=== PATIENT | male | born 1980 | race Caucasian/White ===

== ENCOUNTER 2017-09-16 04:29 | Inpatient (IN) | payer BC, OTHER ==
[2017-09-16] MEDS ORDERED: Ondansetron 4 MG/2 ML SDV IVPUSH ONE (04:43)
[2017-09-16] MEDS ORDERED: HYDROmorphone 2 MG/ML Syringe IVPUSH ONE (04:43)
[2017-09-16] MEDS ORDERED: Sodium Chloride 0.9% 1,000 ML IV ONE ×3 (04:43→06:27)
[2017-09-16] MEDS ORDERED: Sodium Chloride 0.9% 10 ML Syringe FLUSH PRN (04:43)
[2017-09-16] MEDS ORDERED: Sodium Chloride 0.9% 2.5 ML Syringe FLUSH PRN (04:43)
[2017-09-16] MEDS ORDERED: HYDROmorphone 1 MG/ML Syringe IVPUSH ONE ×2 (04:46→06:09)
--- NOTE | 2017-09-16 04:48 | EDM.PDOC ---
ED HPI GENERAL MEDICAL PROBLEM - General Chief Complaint: Abdominal Pain Stated Complaint: STOMACH PAINS Time Seen by Provider: 09/16/17 04:36 - History of Present Illness INITIAL COMMENTS - FREE TEXT/NARRATIVE: HISTORY AND PHYSICAL: History of present illness: The patient is a 36 y/o male who presents with complaints of 2-1/2 days of constant abdominal pain which waxes and wanes in intensity. The patient has a complicated abdominal surgical history as he has had diverticulitis in the past and has been treated for that and then developed a diverticular abscess requiring surgery. He had the surgery done in [place] and had a colostomy which was subsequently reversed and then because of complications had to have an ileostomy which was then reversed and his most recent surgery was June of this year, 2 months ago. The patient says that for the last 2 days he has had a constant diffuse abdominal pain more in the mid abdomen that he rates as a 6/10 and then he has waxing and waning waves of contraction-like pain but takes it to a 10 over 10. The patient thought he might be somewhat constipated so he took some [id number] preps and has had some small episodes of diarrhea this evening. He has not had an appetite since Friday but has forced himself to eat but he feels nauseated with that and he has only vomited on Friday night. Currently he feels like he is going to vomit again but he has not done so. The patient has not taken anything specifically for pain tonight or nausea. He has not had fevers chills chest pain or shortness of breath. He was told by his surgeon that he has a large amount of scar tissue and that he is at risk for bowel blockages. The patient says that they took his appendix out during one of these surgeries but he still has his gallbladder. He has been making normal urine output. The patient states her nursing history history of hypertension and anxiety chronic back pain and depression and PTSD Review of systems: As per history of present illness and below otherwise all systems reviewed and negative. Past medical history: As per history of present illness and as reviewed below otherwise noncontributory. Surgical history: As per history of present illness and as reviewed below otherwise noncontributory. Social history: No reported history of drug or alcohol abuse. Family history: As per history of present illness and as reviewed below otherwise noncontributory. Physical exam: General: Well-developed well-nourished man who is nontoxic and looks intermittently uncomfortable but is cooperative and vital signs are noted by me HEENT: Atraumatic, normocephalic, negative for conjunctival pallor or scleral icterus, mucous membranes tacky, throat clear, neck supple, nontender, trachea midline. Lungs: Clear to auscultation, breath sounds equal bilaterally, chest nontender. No work of. Breathing, wheezing or stridor Heart: S1S2, regular, negative for clicks, rubs, or JVD. Abdomen: Soft, nondistended, diffusely mildly tender on palpation with very hypoactive bowel sounds. There is no tympany on percussion. There are multiple healed scars appreciated and a small umbilical hernia which is soft. There is diffuse tenderness with more tenderness around the right mid/lower quadrant old incisional area with some voluntary guarding but no involuntary guarding or rebound. The patient has difficulty relaxing for the exam Negative for masses or hepatosplenomegaly. Negative for costovertebral tenderness. Pelvis: Stable nontender. Genitourinary: Deferred. Rectal: Deferred. Extremities: Atraumatic, negative for cords or calf pain. Neurovascular unremarkable. Neuro: Awake, alert, oriented. Cranial nerves II through XII unremarkable. Cerebellum unremarkable. Motor and sensory unremarkable throughout. Exam nonfocal. Diagnostics: CBC CMP amylase lipase lactic acid CT scan of the abdomen and pelvis UA Therapeutics: IV fluids Zofran Dilaudid 0702: Testing results were discussed with Dr. Russo as well as with the patient. The patient will be admitted for IV fluids and bowel rest and further care and evaluation. It is unclear if the patient has non-CT pancreatitis or just inflammatory bowel disease. The patient says he has never been told that he has an IBS syndrome. He is feeling much improved is agreeable to the care plan. Impression: Abdominal pain with complicated abdominal surgical history, rule out pancreatitis versus IBS Definitive disposition and diagnosis as appropriate pending reevaluation and review of above. abdomen Pain Score (Numeric/FACES): 6 - Related Data Allergies Allergy/AdvReac Type Severity Reaction Status Date / Time No Known Allergies Allergy Verified 09/16/17 04:30 Home Meds: Home Meds Citalopram Hydrobromide [Celexa] 20 mg PO DAILY 07/05/16 [History] Diclofenac Sodium [IJD: Diclofenac Sodium] 75 mg PO BID 07/05/16 [History] Gabapentin [Neurontin] 600 mg PO TID 07/05/16 [History] Lisinopril [Prinivil] 20 mg PO DAILY 07/05/16 [History] traZODone 0 mg PO BEDTIME 07/05/16 [History] Past Medical History Cardiovascular History: Reports: Hypertension Gastrointestinal History: Reports: Other (See Below) Other Gastrointestinal History: Diverticulitis Musculoskeletal History: Reports: Back Pain, Chronic Psychiatric History: Reports: Anxiety, Depression, PTSD - Infectious Disease History Infectious Disease History: Reports: Chicken Pox - Past Surgical History GI Surgical History: Reports: Other (See Below) Musculoskeletal Surgical History: Reports: Other (See Below) Social & Family History - Family History Family Medical History: Noncontributory - Caffeine Use Caffeine Use: Reports: Coffee, Soda ED ROS GENERAL - Review of Systems Review Of Systems: ROS reveals no pertinent complaints other than HPI. ED EXAM, GENERAL - Physical Exam Exam: See Below (See dictation) Course - Vital Signs Last Recorded V/S: Last Vital Signs Temp 36.4 C 09/16/17 06:24 Pulse 64 09/16/17 06:24 Resp 18 09/16/17 06:24 BP 138/78 09/16/17 06:24 Pulse Ox 98 09/16/17 06:24 - Orders/Labs/Meds Orders: Active Orders 24 hr Category Date Time Status Patient Status [ADT] Stat ADT 09/16/17 07:10 Ordered Abdomen Pelvis w Cont [CT] Stat Exams 09/16/17 04:43 Taken UA W/MICROSCOPIC [URIN] Stat Lab 09/16/17 04:42 Ordered Sodium Chloride 0.9% [Normal Saline] 1,000 ml Med 09/16/17 06:27 Active IV .Bolus Sodium Chloride 0.9% [Normal Saline] 1,000 ml Med 09/16/17 06:27 Active IV STAT Sodium Chloride 0.9% [Saline Flush] Med 09/16/17 04:43 Active 10 ml FLUSH ASDIRECTED PRN Sodium Chloride 0.9% [Saline Flush] Med 09/16/17 04:43 Active 2.5 ml FLUSH ASDIRECTED PRN Saline Lock Insert [OM.PC] Stat Oth 09/16/17 04:42 Ordered Medication Orders Sodium Chloride (Normal Saline) 1,000 mls @ 999 mls/hr IV STAT ONE Stop: 09/16/17 07:27 Last Admin: 09/16/17 06:29 Dose: 999 mls/hr Sodium Chloride (Normal Saline) 1,000 mls @ 999 mls/hr IV .Bolus ONE Stop: 09/16/17 07:27 Sodium Chloride (Saline Flush) 10 ml FLUSH ASDIRECTED PRN PRN Reason: Keep Vein Open Sodium Chloride (Saline Flush) 2.5 ml FLUSH ASDIRECTED PRN PRN Reason: Keep Vein Open Labs: Laboratory Tests 09/16/17 09/16/17 09/16/17 Range/Units 04:42 04:42 04:42 WBC 9.99 (4.0-11.0) K/uL RBC 5.28 (4.50-5.90) M/uL Hgb 16.7 (13.0-17.0) g/dL Hct 46.2 (38.0-50.0) % MCV 87.5 (80.0-98.0) fL MCH 31.6 (27.0-32.0) pg MCHC 36.1 (31.0-37.0) g/dL RDW Std Deviation 38.5 (28.0-62.0) fl RDW Coeff of [place] 12 (11.0-15.0) % Plt Count 217 (150-400) K/uL MPV 10.10 (7.40-12.00) fL Neut % (Auto) 74.0 (48.0-80.0) % Lymph % (Auto) 18.1 (16.0-40.0) % [place] % (Auto) 7.4 (0.0-15.0) % Eos % (Auto) 0.3 (0.0-7.0) % Baso % (Auto) 0.2 (0.0-1.5) % Neut # (Auto) 7.4 H (1.4-5.7) K/uL Lymph # (Auto) 1.8 (0.6-2.4) K/uL [place] # (Auto) 0.7 (0.0-0.8) K/uL Eos # (Auto) 0.0 (0.0-0.7) K/uL Baso # (Auto) 0.0 (0.0-0.1) K/uL Nucleated RBC % 0.0 /100WBC Nucleated RBCs # 0 K/uL Lactate 0.7 (0.20-2.00) mmol/L Sodium 140 (136-148) mmol/L Potassium 3.6 (3.5-5.1) mmol/L Chloride 101 (98-107) mmol/L Carbon Dioxide 28.5 (21.0-32.0) mmol/L BUN 15 (7.0-18.0) mg/dL Creatinine 1.2 (0.8-1.3) mg/dL Est Cr Clr Drug Dosing 82.33 mL/min Estimated GFR (MDRD) > 60.0 ml/min Glucose 133 H (74-106) mg/dL Calcium 8.7 (8.5-10.1) mg/dL Total Bilirubin 0.5 (0.2-1.0) mg/dL AST 24 (15-37) IU/L ALT 46 (14-63) IU/L Alkaline Phosphatase 68 (46-116) U/L Total Protein 7.4 (6.4-8.2) g/dL Albumin 3.9 (3.4-5.0) g/dL Globulin 3.5 (2.0-3.5) g/dL Albumin/Globulin Ratio 1.1 L (1.3-2.8) Amylase 169 H (25-115) U/L Lipase 1479 H (73-393) U/L Urine Color Urine Appearance Urine pH (5.0-8.0) Ur Specific [place] (1.001-1.035) Urine Protein (NEGATIVE) mg/dL Urine Glucose (UA) (NEGATIVE) mg/dL Urine Ketones (NEGATIVE) mg/dL Urine Occult Blood (NEGATIVE) Urine Nitrite (NEGATIVE) Urine Bilirubin (NEGATIVE) Urine Urobilinogen (<2.0) EU/dL Ur Leukocyte Esterase (NEGATIVE) Urine RBC (0-2/HPF) Urine WBC (0-5/HPF) Ur Epithelial Cells (NONE-FEW) Urine Bacteria (NEGATIVE) 09/16/17 Range/Units 04:42 WBC (4.0-11.0) K/uL RBC (4.50-5.90) M/uL Hgb (13.0-17.0) g/dL Hct (38.0-50.0) % MCV (80.0-98.0) fL MCH (27.0-32.0) pg MCHC (31.0-37.0) g/dL RDW Std Deviation (28.0-62.0) fl RDW Coeff of [place] (11.0-15.0) % Plt Count (150-400) K/uL MPV (7.40-12.00) fL Neut % (Auto) (48.0-80.0) % Lymph % (Auto) (16.0-40.0) % [place] % (Auto) (0.0-15.0) % Eos % (Auto) (0.0-7.0) % Baso % (Auto) (0.0-1.5) % Neut # (Auto) (1.4-5.7) K/uL Lymph # (Auto) (0.6-2.4) K/uL [place] # (Auto) (0.0-0.8) K/uL Eos # (Auto) (0.0-0.7) K/uL Baso # (Auto) (0.0-0.1) K/uL Nucleated RBC % /100WBC Nucleated RBCs # K/uL Lactate (0.20-2.00) mmol/L Sodium (136-148) mmol/L Potassium (3.5-5.1) mmol/L Chloride (98-107) mmol/L Carbon Dioxide (21.0-32.0) mmol/L BUN (7.0-18.0) mg/dL Creatinine (0.8-1.3) mg/dL Est Cr Clr Drug Dosing mL/min Estimated GFR (MDRD) ml/min Glucose (74-106) mg/dL Calcium (8.5-10.1) mg/dL Total Bilirubin (0.2-1.0) mg/dL AST (15-37) IU/L ALT (14-63) IU/L Alkaline Phosphatase (46-116) U/L Total Protein (6.4-8.2) g/dL Albumin (3.4-5.0) g/dL Globulin (2.0-3.5) g/dL Albumin/Globulin Ratio (1.3-2.8) Amylase (25-115) U/L Lipase (73-393) U/L Urine Color YELLOW Urine Appearance CLEAR Urine pH 6.0 (5.0-8.0) Ur Specific [place] 1.025 (1.001-1.035) Urine Protein NEGATIVE (NEGATIVE) mg/dL Urine Glucose (UA) NEGATIVE (NEGATIVE) mg/dL Urine Ketones NEGATIVE (NEGATIVE) mg/dL Urine Occult Blood NEGATIVE (NEGATIVE) Urine Nitrite NEGATIVE (NEGATIVE) Urine Bilirubin NEGATIVE (NEGATIVE) Urine Urobilinogen 0.2 (<2.0) EU/dL Ur Leukocyte Esterase NEGATIVE (NEGATIVE) Urine RBC NONE SEEN (0-2/HPF) Urine WBC 0-1 (0-5/HPF) Ur Epithelial Cells NOT SEEN (NONE-FEW) Urine Bacteria RARE (NEGATIVE) Meds: Medications Generic Name Dose Route Start Last Admin Trade Name Freq PRN Reason Stop Dose Admin Sodium Chloride 1,000 mls @ 999 mls/hr 09/16/17 06:27 09/16/17 06:29 Normal Saline IV 09/16/17 07:27 999 mls/hr STAT ONE Administration Sodium Chloride 1,000 mls @ 999 mls/hr 09/16/17 06:27 Normal Saline IV 09/16/17 07:27 .Bolus ONE Sodium Chloride 10 ml 09/16/17 04:43 Saline Flush FLUSH ASDIRECTED PRN Keep Vein Open Sodium Chloride 2.5 ml 09/16/17 04:43 Saline Flush FLUSH ASDIRECTED PRN Keep Vein Open Discontinued Medications Generic Name Dose Route Start Last Admin Trade Name Freq PRN Reason Stop Dose Admin Hydromorphone HCl 1 mg 09/16/17 04:43 09/16/17 04:57 Dilaudid IVPUSH 09/16/17 04:44 Not Given ONETIME ONE Hydromorphone HCl 1 mg 09/16/17 04:46 09/16/17 04:55 Dilaudid IVPUSH 09/16/17 04:47 1 mg ONETIME ONE Administration Hydromorphone HCl 1 mg 09/16/17 06:09 09/16/17 06:22 Dilaudid IVPUSH 09/16/17 06:10 1 mg ONETIME ONE Administration Sodium Chloride 1,000 mls @ 999 mls/hr 09/16/17 04:43 09/16/17 04:50 Normal Saline IV 09/16/17 05:43 999 mls/hr STAT ONE Administration Iopamidol 100 ml 09/16/17 06:05 09/16/17 06:06 [id number] (76%) IVPUSH 09/16/17 06:06 100 ml ONETIME STA Administration Ondansetron HCl 4 mg 09/16/17 04:43 09/16/17 04:55 Zofran IVPUSH 09/16/17 04:44 4 mg ONETIME ONE Administration Departure - Departure Time of Disposition: 07:12 Disposition: Admitted As Inpatient 66 Condition: Good Clinical Impression: Inflammatory bowel syndrome Abdominal pain Qualifiers: Abdominal location: right lower quadrant Qualified Code(s): R10.31 - Right lower quadrant pain Pancreatitis Qualifiers: Chronicity: acute Pancreatitis type: unspecified pancreatitis type Acute pancreatitis complication: unspecified Qualified Code(s): K85.90 - Acute pancreatitis without necrosis or infection, unspecified - Discharge Information Referrals: PCP,None [Primary Care Provider] - Forms: ED Department Discharge - My Orders Last 24 Hours: My Active Orders 09/16/17 04:42 UA W/MICROSCOPIC [URIN] Stat Saline Lock Insert [OM.PC] Stat 09/16/17 04:43 Abdomen Pelvis w Cont [CT] Stat Sodium Chloride 0.9% [Saline Flush] 10 ml FLUSH ASDIRECTED PRN Sodium Chloride 0.9% [Saline Flush] 2.5 ml FLUSH ASDIRECTED PRN 09/16/17 06:27 Sodium Chloride 0.9% [Normal Saline] 1,000 ml IV .Bolus Sodium Chloride 0.9% [Normal Saline] 1,000 ml IV STAT 09/16/17 07:10 Patient Status [ADT] Stat - Assessment/Plan Last 24 Hours: My Active Orders 09/16/17 04:42 UA W/MICROSCOPIC [URIN] Stat Saline Lock Insert [OM.PC] Stat 09/16/17 04:43 Abdomen Pelvis w Cont [CT] Stat Sodium Chloride 0.9% [Saline Flush] 10 ml FLUSH ASDIRECTED PRN Sodium Chloride 0.9% [Saline Flush] 2.5 ml FLUSH ASDIRECTED PRN 09/16/17 06:27 Sodium Chloride 0.9% [Normal Saline] 1,000 ml IV .Bolus Sodium Chloride 0.9% [Normal Saline] 1,000 ml IV STAT 09/16/17 07:10 Patient Status [ADT] Stat
[2017-09-16 05:17] LABS: CHLORIDE,CL 101 mmol/L (98-107); SODIUM,NA 140 mmol/L (136-148)
[2017-09-16] MEDS ORDERED: Iopamidol 755 Mg/ML 100 ML Bottle IVPUSH STA (06:05)
[2017-09-16] MEDS ORDERED: Citalopram 20 MG Tab PO SCH ×2 (09:00→21:00)
[2017-09-16] MEDS ORDERED: Lisinopril 10 MG Tab PO SCH ×2 (09:00→21:00)
[2017-09-16] MEDS: Morphine 10 MG/ML Syringe IVPUSH PRN ×6 (09:03→23:16)
--- NOTE | 2017-09-16 09:54 | PCM.HP ---
<Ventura Corbett - Last Filed: 09/16/17 09:48> H&P History of Present Illness - General Date of Service: 09/16/17 Admit Problem/Dx: Admission Diagnosis/Problem Admission Diagnosis/Problem Abdominal pain Source of Information: Patient History Limitations: Reports: No Limitations - History of Present Illness Initial Comments - Free Text/Narative: 36M with a history of recurrent diverticulitis, diverticular abscess s/p colectomy resulting in complications requiring colostomy, ileostomy presents to the ER with a CC of abdominal pain. The patient had ileostomy reversal/removal this past June. Patient tells me that since this past friday, he went out for dinner with his friends and since then began to experience generalized abdominal pain that was mainly concentrated in the lower quadrants bilaterally. He initially thought this was just constipation so he drank mag citrate, that helped him have a bowel movement but didn't help with the pain. Since then, the pain is about a 6/10, with intermittent waves of 10/10 pain. He has been admitted multiple times in the past at [place] [place] for pain control. The patient tells me that he's been told by patients that the pain is likely secondary to scar tissue formation around his bowel. He denies any alcohol use. He still has his galbladder. He also had his appendix removed in the past. CBC - unremarkable Lactate - normal CMP - unremarkable Lipase - 1479 Amylase - [address] Abdomen/Pelvis - segmental inflammation of the distal small bowel in the RLQ. Radiographic features suggestive of possible Crohn's disease. abdomen Pain Score (Numeric/FACES): 6 - Related Data Allergies/Adverse Reactions: Allergies Allergy/AdvReac Type Severity Reaction Status Date / Time No Known Allergies Allergy Verified 09/16/17 04:30 Home Medications: Home Meds Citalopram Hydrobromide [Celexa] 20 mg PO DAILY 07/05/16 [History] Diclofenac Sodium [IJD: Diclofenac Sodium] 75 mg PO BID 07/05/16 [History] Gabapentin [Neurontin] 600 mg PO TID 07/05/16 [History] Lisinopril [Prinivil] 20 mg PO DAILY 07/05/16 [History] traZODone 0 mg PO BEDTIME 07/05/16 [History] Past Medical History Cardiovascular History: Reports: Hypertension Gastrointestinal History: Reports: Other (See Below) Other Gastrointestinal History: Diverticulitis Musculoskeletal History: Reports: Back Pain, Chronic Psychiatric History: Reports: Anxiety, Depression, PTSD - Infectious Disease History Infectious Disease History: Reports: Chicken Pox - Past Surgical History GI Surgical History: Reports: Other (See Below) Musculoskeletal Surgical History: Reports: Other (See Below) Social & Family History - Family History Family Medical History: Noncontributory - Tobacco Use Smoking Status *Q: Former Smoker Years of Tobacco use: 10 Used Tobacco, but Quit: Yes Month/Year Tobacco Last Used: June 2017 - Caffeine Use Caffeine Use: Reports: Energy Drinks - Recreational Drug Use Recreational Drug Use: No H&P Review of Systems - Review of Systems: Review Of Systems: See Below General: Reports: Decreased Appetite HEENT: Reports: No Symptoms Pulmonary: Reports: No Symptoms Cardiovascular: Reports: No Symptoms Gastrointestinal: Reports: Abdominal Pain, Constipation, Decreased Appetite, Vomiting (one episode of nonbloody emesis yesterday). Denies: Black Stool, Bloody Stool, Diarrhea, Difficulty Swallowing, Distension, Nausea Genitourinary: Reports: No Symptoms Musculoskeletal: Reports: No Symptoms Skin: Reports: No Symptoms Psychiatric: Reports: No Symptoms Neurological: Reports: No Symptoms Hematologic/Lymphatic: Reports: No Symptoms Immunologic: Reports: No Symptoms Exam - Exam Exam: See Below - Vital Signs Vital Signs: Last Vital Signs Temp 36.1 C 09/16/17 08:30 Pulse 57 L 09/16/17 08:30 Resp 18 09/16/17 08:30 BP 142/72 H 09/16/17 08:30 Pulse Ox 96 09/16/17 08:30 Weight: 194 lb - Exam General: Alert, Oriented HEENT: PERRLA, Hearing Intact, Mucosa Moist & [place], Nares Patent, Normal Nasal Septum, Posterior Pharynx Clear, Conjunctiva Clear, EOMI, EACs Clear, TMs Clear Neck: Supple, Trachea Midline, 2 Lungs: Clear to Auscultation, Normal Respiratory Effort Cardiovascular: Regular Rate, Regular Rhythm GI/Abdominal Exam: Normal Bowel Sounds, Other (generalized tenderness that is prominent in the lower quadrants bilaterally. no rebound. negative garcia. no epigastric tenderness.). No: Distended, Guarding, Rigid, Rebound Back Exam: Normal Inspection, Full Range of Motion, NT Extremities: Normal Inspection, Normal Range of Motion, Non-Tender, No Pedal Edema, Normal Capillary Refill Skin: Warm, Dry, Intact Neurological: Cranial Nerves Intact, Reflexes Equal Bilateral Neuro Extensive - Mental Status: Alert, Oriented x3, Normal Mood/Affect, Normal Cognition Neuro Extensive - Motor, Sensory, Reflexes: CN II-XII Intact, Normal Gait, Normal Reflexes Psychiatric: Alert, Normal Affect, Normal Mood - Patient Data Lab Results Last 24 hrs: Laboratory Results - last 24 hr 09/16/17 09/16/17 09/16/17 Range/Units 04:42 04:42 04:42 WBC 9.99 (4.0-11.0) K/uL RBC 5.28 (4.50-5.90) M/uL Hgb 16.7 (13.0-17.0) g/dL Hct 46.2 (38.0-50.0) % MCV 87.5 (80.0-98.0) fL MCH 31.6 (27.0-32.0) pg MCHC 36.1 (31.0-37.0) g/dL RDW Std Deviation 38.5 (28.0-62.0) fl RDW Coeff of Leatha 12 (11.0-15.0) % Plt Count 217 (150-400) K/uL MPV 10.10 (7.40-12.00) fL Neut % (Auto) 74.0 (48.0-80.0) % Lymph % (Auto) 18.1 (16.0-40.0) % Morrow % (Auto) 7.4 (0.0-15.0) % Eos % (Auto) 0.3 (0.0-7.0) % Baso % (Auto) 0.2 (0.0-1.5) % Neut # (Auto) 7.4 H (1.4-5.7) K/uL Lymph # (Auto) 1.8 (0.6-2.4) K/uL Morrow # (Auto) 0.7 (0.0-0.8) K/uL Eos # (Auto) 0.0 (0.0-0.7) K/uL Baso # (Auto) 0.0 (0.0-0.1) K/uL Nucleated RBC % 0.0 /100WBC Nucleated RBCs # 0 K/uL Lactate 0.7 (0.20-2.00) mmol/L Sodium 140 (136-148) mmol/L Potassium 3.6 (3.5-5.1) mmol/L Chloride 101 (98-107) mmol/L Carbon Dioxide 28.5 (21.0-32.0) mmol/L BUN 15 (7.0-18.0) mg/dL Creatinine 1.2 (0.8-1.3) mg/dL Est Cr Clr Drug Dosing 82.33 mL/min Estimated GFR (MDRD) > 60.0 ml/min Glucose 133 H (74-106) mg/dL Calcium 8.7 (8.5-10.1) mg/dL Total Bilirubin 0.5 (0.2-1.0) mg/dL AST 24 (15-37) IU/L ALT 46 (14-63) IU/L Alkaline Phosphatase 68 (46-116) U/L C-Reactive Protein (0.00-0.90) mg/dL Total Protein 7.4 (6.4-8.2) g/dL Albumin 3.9 (3.4-5.0) g/dL Globulin 3.5 (2.0-3.5) g/dL Albumin/Globulin Ratio 1.1 L (1.3-2.8) Amylase 169 H (25-115) U/L Lipase 1479 H (73-393) U/L Urine Color Urine Appearance Urine pH (5.0-8.0) Ur Specific Leon (1.001-1.035) Urine Protein (NEGATIVE) mg/dL Urine Glucose (UA) (NEGATIVE) mg/dL Urine Ketones (NEGATIVE) mg/dL Urine Occult Blood (NEGATIVE) Urine Nitrite (NEGATIVE) Urine Bilirubin (NEGATIVE) Urine Urobilinogen (<2.0) EU/dL Ur Leukocyte Esterase (NEGATIVE) Urine RBC (0-2/HPF) Urine WBC (0-5/HPF) Ur Epithelial Cells (NONE-FEW) Urine Bacteria (NEGATIVE) 09/16/17 09/16/17 Range/Units 04:42 04:42 WBC (4.0-11.0) K/uL RBC (4.50-5.90) M/uL Hgb (13.0-17.0) g/dL Hct (38.0-50.0) % MCV (80.0-98.0) fL MCH (27.0-32.0) pg MCHC (31.0-37.0) g/dL RDW Std Deviation (28.0-62.0) fl RDW Coeff of Leatha (11.0-15.0) % Plt Count (150-400) K/uL MPV (7.40-12.00) fL Neut % (Auto) (48.0-80.0) % Lymph % (Auto) (16.0-40.0) % Morrow % (Auto) (0.0-15.0) % Eos % (Auto) (0.0-7.0) % Baso % (Auto) (0.0-1.5) % Neut # (Auto) (1.4-5.7) K/uL Lymph # (Auto) (0.6-2.4) K/uL Morrow # (Auto) (0.0-0.8) K/uL Eos # (Auto) (0.0-0.7) K/uL Baso # (Auto) (0.0-0.1) K/uL Nucleated RBC % /100WBC Nucleated RBCs # K/uL Lactate (0.20-2.00) mmol/L Sodium (136-148) mmol/L Potassium (3.5-5.1) mmol/L Chloride (98-107) mmol/L Carbon Dioxide (21.0-32.0) mmol/L BUN (7.0-18.0) mg/dL Creatinine (0.8-1.3) mg/dL Est Cr Clr Drug Dosing mL/min Estimated GFR (MDRD) ml/min Glucose (74-106) mg/dL Calcium (8.5-10.1) mg/dL Total Bilirubin (0.2-1.0) mg/dL AST (15-37) IU/L ALT (14-63) IU/L Alkaline Phosphatase (46-116) U/L C-Reactive Protein 0.60 (0.00-0.90) mg/dL Total Protein (6.4-8.2) g/dL Albumin (3.4-5.0) g/dL Globulin (2.0-3.5) g/dL Albumin/Globulin Ratio (1.3-2.8) Amylase (25-115) U/L Lipase (73-393) U/L Urine Color YELLOW Urine Appearance CLEAR Urine pH 6.0 (5.0-8.0) Ur Specific Leon 1.025 (1.001-1.035) Urine Protein NEGATIVE (NEGATIVE) mg/dL Urine Glucose (UA) NEGATIVE (NEGATIVE) mg/dL Urine Ketones NEGATIVE (NEGATIVE) mg/dL Urine Occult Blood NEGATIVE (NEGATIVE) Urine Nitrite NEGATIVE (NEGATIVE) Urine Bilirubin NEGATIVE (NEGATIVE) Urine Urobilinogen 0.2 (<2.0) EU/dL Ur Leukocyte Esterase NEGATIVE (NEGATIVE) Urine RBC NONE SEEN (0-2/HPF) Urine WBC 0-1 (0-5/HPF) Ur Epithelial Cells NOT SEEN (NONE-FEW) Urine Bacteria RARE (NEGATIVE) Result Diagrams: 09/16/17 04:42 09/16/17 04:42 Problem List Initiated/Reviewed/Updated: Yes Orders Last 24hrs: Active Orders 24 hr Category Date Time Status Patient Status [ADT] Stat ADT 09/16/17 07:10 Active Abdomen Pelvis w Cont [CT] Stat Exams 09/16/17 04:43 Taken CULTURE STOOL + CAMPY+SHIGATOX [RM] Routine Lab 09/16/17 08:58 Ordered ESR [SEDIMENTATION RATE AUTO] [HEME] Routine Lab 09/16/17 04:42 Received H PYLORI STOOL ANTIGEN [MREF] Routine Lab 09/16/17 08:58 Ordered UA W/MICROSCOPIC [URIN] Stat Lab 09/16/17 04:42 Ordered WBC, STOOL [OP] Routine Lab 09/16/17 08:58 Ordered Citalopram [Celexa] Med 09/16/17 09:00 Active 20 mg PO DAILY Gabapentin [Neurontin] Med 09/16/17 14:00 Active 600 mg PO TID Lisinopril [Prinivil] Med 09/16/17 09:00 Active 20 mg PO DAILY Morphine Med 09/16/17 08:44 Active 4 mg IVPUSH Q2H PRN Sodium Chloride 0.9% [Saline Flush] Med 09/16/17 04:43 Active 10 ml FLUSH ASDIRECTED PRN Sodium Chloride 0.9% [Saline Flush] Med 09/16/17 04:43 Active 2.5 ml FLUSH ASDIRECTED PRN Saline Lock Insert [OM.PC] Stat Oth 09/16/17 04:42 Ordered Medication Orders Citalopram Hydrobromide (Celexa) 20 mg PO DAILY PETER Gabapentin (Neurontin) 600 mg PO TID PETER Lisinopril (Prinivil) 20 mg PO DAILY PETER Morphine Sulfate (Morphine) 4 mg IVPUSH Q2H PRN PRN Reason: Pain Last Admin: 09/16/17 09:03 Dose: 4 mg Sodium Chloride (Saline Flush) 10 ml FLUSH ASDIRECTED PRN PRN Reason: Keep Vein Open Sodium Chloride (Saline Flush) 2.5 ml FLUSH ASDIRECTED PRN PRN Reason: Keep Vein Open Assessment/Plan Comment:: Assessment: #1. Segmental small bowel inflammation #2. Elevated lipase #3. Elevated amylase #4. History of diverticulitis, diverticular abscess, colectomy, appendectomy, ileostomy, colostomy Plan: #1. Admit to the floor for observation. Full code. Vital signs per floor routine. NPO. #2. IV morphine 4mg q2h PRN, Pain. IV dilaudid 1mg q2h for severe pain not responding to morphine. #3. IVNS 175mL/h #4. Consult general surgery for further recommendations on management. <Ralph Russo - Last Filed: 09/16/17 19:10> H&P History of Present Illness - General Admit Problem/Dx: Admission Diagnosis/Problem Admission Diagnosis/Problem Abdominal pain Exam - Vital Signs Vital Signs: Last Vital Signs Temp 97.8 F 09/16/17 15:59 Pulse 54 L 09/16/17 15:59 Resp 20 09/16/17 15:59 BP 108/57 L 09/16/17 15:59 Pulse Ox 96 09/16/17 15:59 - Patient Data Lab Results Last 24 hrs: Laboratory Results - last 24 hr 09/16/17 09/16/17 09/16/17 Range/Units 04:42 04:42 04:42 WBC 9.99 (4.0-11.0) K/uL RBC 5.28 (4.50-5.90) M/uL Hgb 16.7 (13.0-17.0) g/dL Hct 46.2 (38.0-50.0) % MCV 87.5 (80.0-98.0) fL MCH 31.6 (27.0-32.0) pg MCHC 36.1 (31.0-37.0) g/dL RDW Std Deviation 38.5 (28.0-62.0) fl RDW Coeff of Leatha 12 (11.0-15.0) % Plt Count 217 (150-400) K/uL MPV 10.10 (7.40-12.00) fL Neut % (Auto) 74.0 (48.0-80.0) % Lymph % (Auto) 18.1 (16.0-40.0) % Morrow % (Auto) 7.4 (0.0-15.0) % Eos % (Auto) 0.3 (0.0-7.0) % Baso % (Auto) 0.2 (0.0-1.5) % Neut # (Auto) 7.4 H (1.4-5.7) K/uL Lymph # (Auto) 1.8 (0.6-2.4) K/uL Morrow # (Auto) 0.7 (0.0-0.8) K/uL Eos # (Auto) 0.0 (0.0-0.7) K/uL Baso # (Auto) 0.0 (0.0-0.1) K/uL Nucleated RBC % 0.0 /100WBC Nucleated RBCs # 0 K/uL ESR (0-14) mm/hr Lactate 0.7 (0.20-2.00) mmol/L Sodium 140 (136-148) mmol/L Potassium 3.6 (3.5-5.1) mmol/L Chloride 101 (98-107) mmol/L Carbon Dioxide 28.5 (21.0-32.0) mmol/L BUN 15 (7.0-18.0) mg/dL Creatinine 1.2 (0.8-1.3) mg/dL Est Cr Clr Drug Dosing 82.33 mL/min Estimated GFR (MDRD) > 60.0 ml/min Glucose 133 H (74-106) mg/dL Calcium 8.7 (8.5-10.1) mg/dL Total Bilirubin 0.5 (0.2-1.0) mg/dL AST 24 (15-37) IU/L ALT 46 (14-63) IU/L Alkaline Phosphatase 68 (46-116) U/L C-Reactive Protein (0.00-0.90) mg/dL Total Protein 7.4 (6.4-8.2) g/dL Albumin 3.9 (3.4-5.0) g/dL Globulin 3.5 (2.0-3.5) g/dL Albumin/Globulin Ratio 1.1 L (1.3-2.8) Amylase 169 H (25-115) U/L Lipase 1479 H (73-393) U/L Urine Color Urine Appearance Urine pH (5.0-8.0) Ur Specific Leon (1.001-1.035) Urine Protein (NEGATIVE) mg/dL Urine Glucose (UA) (NEGATIVE) mg/dL Urine Ketones (NEGATIVE) mg/dL Urine Occult Blood (NEGATIVE) Urine Nitrite (NEGATIVE) Urine Bilirubin (NEGATIVE) Urine Urobilinogen (<2.0) EU/dL Ur Leukocyte Esterase (NEGATIVE) Urine RBC (0-2/HPF) Urine WBC (0-5/HPF) Ur Epithelial Cells (NONE-FEW) Urine Bacteria (NEGATIVE) 09/16/17 09/16/17 09/16/17 Range/Units 04:42 04:42 04:42 WBC (4.0-11.0) K/uL RBC (4.50-5.90) M/uL Hgb (13.0-17.0) g/dL Hct (38.0-50.0) % MCV (80.0-98.0) fL MCH (27.0-32.0) pg MCHC (31.0-37.0) g/dL RDW Std Deviation (28.0-62.0) fl RDW Coeff of Leatha (11.0-15.0) % Plt Count (150-400) K/uL MPV (7.40-12.00) fL Neut % (Auto) (48.0-80.0) % Lymph % (Auto) (16.0-40.0) % [place]row % (Auto) (0.0-15.0) % Eos % (Auto) (0.0-7.0) % Baso % (Auto) (0.0-1.5) % Neut # (Auto) (1.4-5.7) K/uL Lymph # (Auto) (0.6-2.4) K/uL Morrow # (Auto) (0.0-0.8) K/uL Eos # (Auto) (0.0-0.7) K/uL Baso # (Auto) (0.0-0.1) K/uL Nucleated RBC % /100WBC Nucleated RBCs # K/uL ESR 1 (0-14) mm/hr Lactate (0.20-2.00) mmol/L Sodium (136-148) mmol/L Potassium (3.5-5.1) mmol/L Chloride (98-107) mmol/L Carbon Dioxide (21.0-32.0) mmol/L BUN (7.0-18.0) mg/dL Creatinine (0.8-1.3) mg/dL Est Cr Clr Drug Dosing mL/min Estimated GFR (MDRD) ml/min Glucose (74-106) mg/dL Calcium (8.5-10.1) mg/dL Total Bilirubin (0.2-1.0) mg/dL AST (15-37) IU/L ALT (14-63) IU/L Alkaline Phosphatase (46-116) U/L C-Reactive Protein 0.60 (0.00-0.90) mg/dL Total Protein (6.4-8.2) g/dL Albumin (3.4-5.0) g/dL Globulin (2.0-3.5) g/dL Albumin/Globulin Ratio (1.3-2.8) Amylase (25-115) U/L Lipase (73-393) U/L Urine Color YELLOW Urine Appearance CLEAR Urine pH 6.0 (5.0-8.0) Ur Specific Leon 1.025 (1.001-1.035) Urine Protein NEGATIVE (NEGATIVE) mg/dL Urine Glucose (UA) NEGATIVE (NEGATIVE) mg/dL Urine Ketones NEGATIVE (NEGATIVE) mg/dL Urine Occult Blood NEGATIVE (NEGATIVE) Urine Nitrite NEGATIVE (NEGATIVE) Urine Bilirubin NEGATIVE (NEGATIVE) Urine Urobilinogen 0.2 (<2.0) EU/dL Ur Leukocyte Esterase NEGATIVE (NEGATIVE) Urine RBC NONE SEEN (0-2/HPF) Urine WBC 0-1 (0-5/HPF) Ur Epithelial Cells NOT SEEN (NONE-FEW) Urine Bacteria RARE (NEGATIVE) 09/16/17 Range/Units 10:30 WBC (4.0-11.0) K/uL RBC (4.50-5.90) M/uL Hgb (13.0-17.0) g/dL Hct (38.0-50.0) % MCV (80.0-98.0) fL MCH (27.0-32.0) pg MCHC (31.0-37.0) g/dL RDW Std Deviation (28.0-62.0) fl RDW Coeff of Leatha (11.0-15.0) % Plt Count (150-400) K/uL MPV (7.40-12.00) fL Neut % (Auto) (48.0-80.0) % Lymph % (Auto) (16.0-40.0) % Morrow % (Auto) (0.0-15.0) % Eos % (Auto) (0.0-7.0) % Baso % (Auto) (0.0-1.5) % Neut # (Auto) (1.4-5.7) K/uL Lymph # (Auto) (0.6-2.4) K/uL Morrow # (Auto) (0.0-0.8) K/uL Eos # (Auto) (0.0-0.7) K/uL Baso # (Auto) (0.0-0.1) K/uL Nucleated RBC % /100WBC Nucleated RBCs # K/uL ESR (0-14) mm/hr Lactate 0.6 (0.20-2.00) mmol/L Sodium (136-148) mmol/L Potassium (3.5-5.1) mmol/L Chloride (98-107) mmol/L Carbon Dioxide (21.0-32.0) mmol/L BUN (7.0-18.0) mg/dL Creatinine (0.8-1.3) mg/dL Est Cr Clr Drug Dosing mL/min Estimated GFR (MDRD) ml/min Glucose (74-106) mg/dL Calcium (8.5-10.1) mg/dL Total Bilirubin (0.2-1.0) mg/dL AST (15-37) IU/L ALT (14-63) IU/L Alkaline Phosphatase (46-116) U/L C-Reactive Protein (0.00-0.90) mg/dL Total Protein (6.4-8.2) g/dL Albumin (3.4-5.0) g/dL Globulin (2.0-3.5) g/dL Albumin/Globulin Ratio (1.3-2.8) Amylase (25-115) U/L Lipase (73-393) U/L Urine Color Urine Appearance Urine pH (5.0-8.0) Ur Specific Leon (1.001-1.035) Urine Protein (NEGATIVE) mg/dL Urine Glucose (UA) (NEGATIVE) mg/dL Urine Ketones (NEGATIVE) mg/dL Urine Occult Blood (NEGATIVE) Urine Nitrite (NEGATIVE) Urine Bilirubin (NEGATIVE) Urine Urobilinogen (<2.0) EU/dL Ur Leukocyte Esterase (NEGATIVE) Urine RBC (0-2/HPF) Urine WBC (0-5/HPF) Ur Epithelial Cells (NONE-FEW) Urine Bacteria (NEGATIVE) Result Diagrams: 09/16/17 04:42 09/16/17 04:42 Saqib Results Last 24 hrs: Microbiology 09/16/17 15:20 Campylobacter Antigen Assay - Final Stool / Feces NEGATIVE CAMPYLOBACTER AG 09/16/17 15:20 Stool for WBCs - Final Stool / Feces POSITIVE FOR WBC'S - Problem List (1) GI complications of surgery SNOMED Code(s): 172628466 ICD Code: K91.89 - OTH POSTPROCEDURAL COMPLICATIONS AND DISORDERS OF DGSTV SYS Status: Acute Current Visit: Yes (2) Hx of traumatic brain injury SNOMED Code(s): 02795852691501, 51841698039535 ICD Code: Z87.820 - PERSONAL HISTORY OF TRAUMATIC BRAIN INJURY Status: Acute Current Visit: Yes (3) Status post closure of ileostomy SNOMED Code(s): 96789293371644830 ICD Code: Z98.890 - OTHER SPECIFIED POSTPROCEDURAL STATES Status: Acute Current Visit: Yes (4) Elevated amylase and lipase SNOMED Code(s): 228271606, 937280056 ICD Code: R74.8 - ABNORMAL LEVELS OF OTHER SERUM ENZYMES Status: Acute Current Visit: Yes Problem List Initiated/Reviewed/Updated: Yes Orders Last 24hrs: Active Orders 24 hr Category Date Time Status Patient Status [ADT] Stat ADT 09/16/17 07:10 Active Oxygen Therapy [RC] PRN Care 09/16/17 10:01 Active Up ad Steff [RC] ASDIRECTED Care 09/16/17 10:01 Active VTE/DVT Education [RC] PER UNIT ROUTINE Care 09/16/17 10:01 Active Vital Signs [RC] Q4H Care 09/16/17 10:01 Active Nothing per Oral Now Diet [DIET] Diet 09/16/17 Breakfast Active BASIC METABOLIC PANEL,BMP [CHEM] AM Lab 09/17/17 05:11 Ordered CBC WITH AUTO DIFF [HEME] AM Lab 09/17/17 05:11 Ordered CULTURE STOOL + CAMPY+SHIGATOX [RM] Routine Lab 09/16/17 15:20 Ordered H PYLORI STOOL ANTIGEN [MREF] Routine Lab 09/16/17 15:20 Received UA W/MICROSCOPIC [URIN] Stat Lab 09/16/17 04:42 Ordered Citalopram [Celexa] Med 09/16/17 21:00 Active 20 mg PO BEDTIME Enoxaparin [Lovenox] Med 09/16/17 10:15 Active 40 mg SUBCUT Q24H Gabapentin [Neurontin] Med 09/16/17 14:00 Active 600 mg PO TID Lactated Ringers [Ringers, Lactated] 1,000 ml Med 09/16/17 18:30 Active IV ASDIRECTED Lisinopril [Prinivil] Med 09/16/17 21:00 Active 20 mg PO BEDTIME Metoclopramide [Reglan] Med 09/16/17 13:11 Active 10 mg IVPUSH Q6H PRN Morphine Med 09/16/17 08:44 Active 4 mg IVPUSH Q2H PRN Ondansetron [Zofran] Med 09/16/17 10:01 Active 4 mg IVPUSH Q4H PRN Sodium Chloride 0.9% [Saline Flush] Med 09/16/17 04:43 Active 10 ml FLUSH ASDIRECTED PRN Sodium Chloride 0.9% [Saline Flush] Med 09/16/17 04:43 Active 2.5 ml FLUSH ASDIRECTED PRN Saline Lock Insert [OM.PC] Stat Oth 09/16/17 04:42 Ordered Resuscitation Status Routine Resus Stat 09/16/17 10:01 Ordered Medication Orders Citalopram Hydrobromide (Celexa) 20 mg PO BEDTIME PETER Enoxaparin Sodium (Lovenox) 40 mg SUBCUT Q24H PETER Last Admin: 09/16/17 11:26 Dose: 40 mg Gabapentin (Neurontin) 600 mg PO TID PETER Last Admin: 09/16/17 13:55 Dose: 600 mg Lactated Ringer's (Ringers, Lactated) 1,000 mls @ 150 mls/hr IV ASDIRECTED PETER Lisinopril (Prinivil) 20 mg PO BEDTIME PETER Metoclopramide HCl (Reglan) 10 mg IVPUSH Q6H PRN PRN Reason: Nausea Morphine Sulfate (Morphine) 4 mg IVPUSH Q2H PRN PRN Reason: Pain Last Admin: 09/16/17 15:05 Dose: 4 mg Admin: 09/16/17 12:39 Dose: 4 mg Admin: 09/16/17 09:03 Dose: 4 mg Ondansetron HCl (Zofran) 4 mg IVPUSH Q4H PRN PRN Reason: Nausea Sodium Chloride (Saline Flush) 10 ml FLUSH ASDIRECTED PRN PRN Reason: Keep Vein Open Sodium Chloride (Saline Flush) 2.5 ml FLUSH ASDIRECTED PRN PRN Reason: Keep Vein Open Assessment/Plan Comment:: Patient seen and examined agree with assessment and plan of resident , please consider the following addendum . Discuss with Surgery director prison Dr. Garcia , he recommended considering the multiple abdominal surgeries and complications patient to be transferred to his Surgeon. Discussed with the [place] surgeon , Dr. Stanley- he recommended medical management and no antibiotics unless patient develops fever or leucocytosis. His Crp and esr were 0.6 and 1. Elevated lipase due to small intestine distension, as per Surgery Dr. Stanley stated his symptoms are due to a tight anastomosis and stress on it which caused him edema and inflammation. He recommended patient to have bowel rest and iv fluids and to follow up with him in 2-3 weeks upon discharge , to have low residual diet upon discharge. He states that his anastomosis will gentle dilate and stretch by themself with time. He recommended patient transfer to [place] or to his facility if he has worsening symptoms.
[2017-09-16] MEDS ORDERED: HYDROmorphone 2 MG/ML SDV IVPUSH PRN (10:01)
[2017-09-16] MEDS ORDERED: Ondansetron 4 MG/2 ML SDV IVPUSH PRN (10:01)
[2017-09-16] MEDS ORDERED: Sodium Chloride 0.9% 1,000 ML IV SCH (11:15)
[2017-09-16] MEDS: Enoxaparin 40 MG/0.4 ML Syringe SUBCUT SCH (11:26)
--- NOTE | 2017-09-16 11:28 | CT ---
EXAM DATE: 09/16/17 PATIENT'S AGE: 36 Patient: JIMMIE ZARAGOZA Facility: [place], [place] Site . Site : [id number] Study: CT Abdomen/Pelvis [id number]/26/2018 5:59:03 AM Ordering Physician: Zhanna Sibley Final Report: INDICATION: Abdominal pain and nausea. Elevated lipase. Comparison : None available. TECHNIQUE: A CT volumetric acquisition was performed of the abdomen and pelvis during the intravenous infusion of 100 cc of Isovue-370 nonionic intravenous contrast. FINDINGS: CT images demonstrate a normal appearance of the lung bases. There is no evidence of pleural or pericardial fluid. Within the abdomen the patient`s liver and spleen demonstrate normal size and uniform enhancement. There is no evidence of mass effect or inflammation within the pancreas or stomach. The gallbladder and bile ducts are normal size. The adrenal glands have normal morphology. The right kidney appears normal. There is a 2.4 cm cyst within the upper pole cortex left kidney. The abdominal aorta appears normal and there is no evidence of retroperitoneal hemorrhage or lymphadenopathy. There is an abnormal appearance of the distal small bowel with circumferential mural edema and mucosal hyperemia. This involves the right lower quadrant and lower midabdomen. This extends proximal to the anastomotic suture line within the small bowel noted on axial images 99-105. There is inflammatory stranding within the surrounding mesenteric fat but I see no evidence of free air or abscess formation. The patient has also had a prior partial distal colectomy within the sigmoid region. There is a normal appearance of the end to side surgical anastomosis. The urinary bladder and prostate gland appear normal. IMPRESSION: The long segment area of inflammation within the distal small bowel involving the right lower quadrant. Radiographic features suggest recurrence of Crohn`s disease. Please note that all CT scans at this facility use dose modulation, iterative reconstruction, and/or weight-based dosing when appropriate to reduce radiation dose to as low as reasonably achievable. Dictated by Larry Chin MD @ Sep 16 2017 6:27AM (Electronic Signature) Report Signed by Proxy. LYNN
[2017-09-16] MEDS: Lactated Ringers 1,000 ML IV SCH ×3 (11:53→23:17)
[2017-09-16] MEDS ORDERED: Metoclopramide 10 MG/2 ML SDV IVPUSH PRN (13:11)
[2017-09-16] MEDS: Gabapentin 300 MG Cap PO SCH ×2 (13:55→21:01)
[2017-09-16] MEDS ORDERED: traZODone 50 MG Tab PO SCH (21:30)
[2017-09-17] MEDS: Lactated Ringers 1,000 ML IV SCH (05:21)
[2017-09-17] MEDS: Gabapentin 300 MG Cap PO SCH (05:22)
[2017-09-17 05:41] LABS: CHLORIDE,CL 106 mmol/L (98-107); SODIUM,NA 142 mmol/L (136-148)
[2017-09-17 08:06] VITALS: BP 121/75
[2017-09-17] MEDS: Enoxaparin 40 MG/0.4 ML Syringe SUBCUT SCH (10:25)
--- NOTE | 2017-09-17 14:43 | PCM.DCSUM1 ---
<Ventura Corbett - Last Filed: 09/17/17 14:38> Discharge Summary - Hospital Course Free Text/Narrative:: Admission date: 09/16/2017 Discharge date: 09/17/2017 Admission diagnosis: #1. Small bowel segmental inflammation #2. Intractable abdominal pain #3. Elevated lipase, amylase #4. History of diverticulitis, diverticular abscess, colectomy, ileostomy, colostomy Discharge diagnosis: #1. Abdominal pain resolved #4. History of diverticulitis, diverticular abscess, colectomy, ileostomy, colostomy Hospital course: This is a 36M with an extensive surgical past secondary to whats mentioned above who presented with a CC of nonremitting abdominal pain located in his lower quadrants bilaterally. CT abdomen indicated small bowel inflammation, with radiographic signs of possible Crohn's disease. He was admitted for pain control, kept NPO, and given IV fluids. He did well with IV morphine, and wasn't requiring any overnight. His case was discussed with his surgeon, who agreed with the plan. The patient the next morning said his abdominal pain was "0" and was eager to go back to work. He was able to eat, he had a bowel movement. He was advised to f/u with his surgeon, and to establish with a PCP. He's only here in [place] temporarily and plans on going back to [place]. He was sent home with Oxycodone 5mg q12h x30 tabs. - Discharge Data Discharge Date: 09/17/17 Discharge Disposition: Home, Self-Care 01 Condition: Stable - Patient Instructions Diet: Usual Diet as Tolerated Activity: As Tolerated Notify Provider of: Fever, Increased Pain, Swelling and Redness, Drainage, Nausea and/or Vomiting - Discharge Plan Prescriptions/Med Rec: oxyCODONE 10 mg PO Q12H #30 tab Home Medications: Home Meds Citalopram Hydrobromide [Celexa] 20 mg PO DAILY 07/05/16 [History] Diclofenac Sodium [IJD: Diclofenac Sodium] 75 mg PO BID 07/05/16 [History] Gabapentin [Neurontin] 600 mg PO TID 07/05/16 [History] Lisinopril [Prinivil] 20 mg PO DAILY 07/05/16 [History] traZODone 0 mg PO BEDTIME 07/05/16 [History] oxyCODONE 10 mg PO Q12H #30 tab 09/17/17 [Rx] Patient Handouts: Acute Pancreatitis, [id number], Oxycodone tablets or capsules, Abdominal Pain, Adult, [id number] Referrals: Mark Paige MD [Physician] - 09/22/17 1:00 pm - Patient Data Vitals - Most Recent: Last Vital Signs Temp 36.5 C 09/17/17 07:00 Pulse 58 L 09/17/17 07:00 Resp 17 09/17/17 07:00 BP 121/75 09/17/17 07:00 Pulse Ox 94 L 09/17/17 07:00 Weight - Most Recent: 194 lb I&O - Last 24 hours: Intake & Output 09/16/17 09/17/17 09/17/17 22:59 06:59 14:59 Intake Total 1052 2955 800 Output Total 600 1800 1150 Balance 452 1155 -350 Lab Results - Last 24 hrs: Laboratory Results - last 24 hr 09/17/17 09/17/17 Range/Units 04:55 04:55 WBC 4.82 (4.0-11.0) K/uL RBC 4.35 L (4.50-5.90) M/uL Hgb 13.3 (13.0-17.0) g/dL Hct 39.0 (38.0-50.0) % MCV 89.7 (80.0-98.0) fL MCH 30.6 (27.0-32.0) pg MCHC 34.1 (31.0-37.0) g/dL RDW Std Deviation 38.9 (28.0-62.0) fl RDW Coeff of Leatha 12 (11.0-15.0) % Plt Count 159 (150-400) K/uL MPV 9.90 (7.40-12.00) fL Neut % (Auto) 50.6 (48.0-80.0) % Lymph % (Auto) 38.2 (16.0-40.0) % Cavalier % (Auto) 9.5 (0.0-15.0) % Eos % (Auto) 1.5 (0.0-7.0) % Baso % (Auto) 0.2 (0.0-1.5) % Neut # (Auto) 2.4 (1.4-5.7) K/uL Lymph # (Auto) 1.8 (0.6-2.4) K/uL Cavalier # (Auto) 0.5 (0.0-0.8) K/uL Eos # (Auto) 0.1 (0.0-0.7) K/uL Baso # (Auto) 0.0 (0.0-0.1) K/uL Nucleated RBC % 0.0 /100WBC Nucleated RBCs # 0 K/uL Sodium 142 (136-148) mmol/L Potassium 3.8 (3.5-5.1) mmol/L Chloride 106 (98-107) mmol/L Carbon Dioxide 29.3 (21.0-32.0) mmol/L BUN 9 (7.0-18.0) mg/dL Creatinine 1.1 (0.8-1.3) mg/dL Est Cr Clr Drug Dosing 89.82 mL/min Estimated GFR (MDRD) > 60.0 ml/min Glucose 86 (74-106) mg/dL Calcium 8.3 L (8.5-10.1) mg/dL JAMEY Results - Last 24 hrs: Microbiology 09/16/17 15:20 Campylobacter Antigen Assay - Final Stool / Feces NEGATIVE CAMPYLOBACTER AG - Final NEGATIVE FOR SHIGA TOXIN 1 - Final NEGATIVE FOR SHIGA TOXIN 2 09/16/17 15:20 Stool for WBCs - Final Stool / Feces POSITIVE FOR WBC'S Med Orders - Current: Current Medications Discontinued Medications Citalopram Hydrobromide (Celexa) 20 mg PO DAILY [facility] Last Admin: 09/16/17 10:43 Dose: Not Given Citalopram Hydrobromide (Celexa) 20 mg PO BEDTIME [facility] Last Admin: 09/16/17 21:01 Dose: 20 mg Enoxaparin Sodium (Lovenox) 40 mg SUBCUT Q24H [facility] Last Admin: 09/17/17 10:25 Dose: Not Given Gabapentin (Neurontin) 600 mg PO TID [facility] Last Admin: 09/17/17 05:22 Dose: 600 mg Hydromorphone HCl (Dilaudid) 1 mg IVPUSH ONETIME ONE Stop: 09/16/17 04:44 Last Admin: 09/16/17 04:57 Dose: Not Given Hydromorphone HCl (Dilaudid) 1 mg IVPUSH ONETIME ONE Stop: 09/16/17 04:47 Last Admin: 09/16/17 04:55 Dose: 1 mg Hydromorphone HCl (Dilaudid) 1 mg IVPUSH ONETIME ONE Stop: 09/16/17 06:10 Last Admin: 09/16/17 06:22 Dose: 1 mg Hydromorphone HCl (Dilaudid) 1 mg IVPUSH Q2H PRN PRN Reason: Pain (severe 7-10) Sodium Chloride (Normal Saline) 1,000 mls @ 999 mls/hr IV STAT ONE Stop: 09/16/17 05:43 Last Admin: 09/16/17 04:50 Dose: 999 mls/hr Sodium Chloride (Normal Saline) 1,000 mls @ 999 mls/hr IV STAT ONE Stop: 09/16/17 07:27 Last Admin: 09/16/17 06:29 Dose: 999 mls/hr Sodium Chloride (Normal Saline) 1,000 mls @ 999 mls/hr IV .Bolus ONE Stop: 09/16/17 07:27 Last Admin: 09/16/17 08:30 Dose: 999 mls/hr Lactated Ringer's (Ringers, Lactated) 1,000 mls @ 200 mls/hr IV ASDIRECTED [facility] Last Admin: 09/16/17 17:10 Dose: 200 mls/hr Sodium Chloride (Normal Saline) 1,000 mls @ 175 mls/hr IV ASDIRECTED [facility] Lactated Ringer's (Ringers, Lactated) 1,000 mls @ 150 mls/hr IV ASDIRECTED [facility] Last Admin: 09/17/17 05:21 Dose: 150 mls/hr Iopamidol (Isovue-370 (76%)) 100 ml IVPUSH ONETIME STA Stop: 09/16/17 06:06 Last Admin: 09/16/17 06:06 Dose: 100 ml Lisinopril (Prinivil) 20 mg PO DAILY [facility] Last Admin: 09/16/17 10:43 Dose: Not Given Lisinopril (Prinivil) 20 mg PO BEDTIME [facility] Last Admin: 09/16/17 21:01 Dose: 20 mg Metoclopramide HCl (Reglan) 10 mg IVPUSH Q6H PRN PRN Reason: Nausea Morphine Sulfate (Morphine) 4 mg IVPUSH Q2H PRN PRN Reason: Pain Last Admin: 09/16/17 23:16 Dose: 4 mg Ondansetron HCl (Zofran) 4 mg IVPUSH ONETIME ONE Stop: 09/16/17 04:44 Last Admin: 09/16/17 04:55 Dose: 4 mg Ondansetron HCl (Zofran) 4 mg IVPUSH Q4H PRN PRN Reason: Nausea Sodium Chloride (Saline Flush) 10 ml FLUSH ASDIRECTED PRN PRN Reason: Keep Vein Open Sodium Chloride (Saline Flush) 2.5 ml FLUSH ASDIRECTED PRN PRN Reason: Keep Vein Open Trazodone HCl (Trazodone) 50 mg PO BEDTIME [facility] Trazodone HCl (Trazodone) 150 mg PO BEDTIME [facility] Last Admin: 09/16/17 21:32 Dose: 150 mg <Ralph Russo - Last Filed: 09/17/17 18:31> Discharge Summary - Hospital Course Free Text/Narrative:: Pain localized mostly in the RLQ , his pain today is 3/10 , did not use pain medications since last night , tolerated clear diet. Patient seen and examined , agree with discharge summary. - Discharge Diagnosis/Problem(s) (1) GI complications of surgery SNOMED Code(s): 280612064 ICD Code: K91.89 - OTH POSTPROCEDURAL COMPLICATIONS AND DISORDERS OF DGSTV SYS Status: Acute (2) Hx of traumatic brain injury SNOMED Code(s): 61782016745416, 42590283469823 ICD Code: Z87.820 - PERSONAL HISTORY OF TRAUMATIC BRAIN INJURY Status: Acute (3) Status post closure of ileostomy SNOMED Code(s): 14376678047851049 ICD Code: Z98.890 - OTHER SPECIFIED POSTPROCEDURAL STATES Status: Acute (4) Elevated amylase and lipase SNOMED Code(s): 435538712, 316923569 ICD Code: R74.8 - ABNORMAL LEVELS OF OTHER SERUM ENZYMES Status: Acute - Patient Data Vitals - Most Recent: Last Vital Signs Temp 97.7 F 09/17/17 07:00 Pulse 58 L 09/17/17 07:00 Resp 17 09/17/17 07:00 BP 121/75 09/17/17 07:00 Pulse Ox 94 L 09/17/17 07:00 I&O - Last 24 hours: Intake & Output 09/17/17 09/17/17 09/17/17 06:59 14:59 22:59 Intake Total 2955 800 Output Total 1800 1150 Balance 1155 -350 Lab Results - Last 24 hrs: Laboratory Results - last 24 hr 09/17/17 09/17/17 Range/Units 04:55 04:55 WBC 4.82 (4.0-11.0) K/uL RBC 4.35 L (4.50-5.90) M/uL Hgb 13.3 (13.0-17.0) g/dL Hct 39.0 (38.0-50.0) % MCV 89.7 (80.0-98.0) fL MCH 30.6 (27.0-32.0) pg MCHC 34.1 (31.0-37.0) g/dL RDW Std Deviation 38.9 (28.0-62.0) fl RDW Coeff of Leatha 12 (11.0-15.0) % Plt Count 159 (150-400) K/uL MPV 9.90 (7.40-12.00) fL Neut % (Auto) 50.6 (48.0-80.0) % Lymph % (Auto) 38.2 (16.0-40.0) % Cavalier % (Auto) 9.5 (0.0-15.0) % Eos % (Auto) 1.5 (0.0-7.0) % Baso % (Auto) 0.2 (0.0-1.5) % Neut # (Auto) 2.4 (1.4-5.7) K/uL Lymph # (Auto) 1.8 (0.6-2.4) K/uL Cavalier # (Auto) 0.5 (0.0-0.8) K/uL Eos # (Auto) 0.1 (0.0-0.7) K/uL Baso # (Auto) 0.0 (0.0-0.1) K/uL Nucleated RBC % 0.0 /100WBC Nucleated RBCs # 0 K/uL Sodium 142 (136-148) mmol/L Potassium 3.8 (3.5-5.1) mmol/L Chloride 106 (98-107) mmol/L Carbon Dioxide 29.3 (21.0-32.0) mmol/L BUN 9 (7.0-18.0) mg/dL Creatinine 1.1 (0.8-1.3) mg/dL Est Cr Clr Drug Dosing 89.82 mL/min Estimated GFR (MDRD) > 60.0 ml/min Glucose 86 (74-106) mg/dL Calcium 8.3 L (8.5-10.1) mg/dL JAMEY Results - Last 24 hrs: Microbiology 09/16/17 15:20 Campylobacter Antigen Assay - Final Stool / Feces NEGATIVE CAMPYLOBACTER AG - Final NEGATIVE FOR SHIGA TOXIN 1 - Final NEGATIVE FOR SHIGA TOXIN 2 09/16/17 15:20 Stool for WBCs - Final Stool / Feces POSITIVE FOR WBC'S Med Orders - Current: Current Medications Discontinued Medications Citalopram Hydrobromide (Celexa) 20 mg PO DAILY [facility] Last Admin: 09/16/17 10:43 Dose: Not Given Citalopram Hydrobromide (Celexa) 20 mg PO BEDTIME [facility] Last Admin: 09/16/17 21:01 Dose: 20 mg Enoxaparin Sodium (Lovenox) 40 mg SUBCUT Q24H [facility] Last Admin: 09/17/17 10:25 Dose: Not Given Gabapentin (Neurontin) 600 mg PO TID [facility] Last Admin: 09/17/17 05:22 Dose: 600 mg Hydromorphone HCl (Dilaudid) 1 mg IVPUSH ONETIME ONE Stop: 09/16/17 04:44 Last Admin: 09/16/17 04:57 Dose: Not Given Hydromorphone HCl (Dilaudid) 1 mg IVPUSH ONETIME ONE Stop: 09/16/17 04:47 Last Admin: 09/16/17 04:55 Dose: 1 mg Hydromorphone HCl (Dilaudid) 1 mg IVPUSH ONETIME ONE Stop: 09/16/17 06:10 Last Admin: 09/16/17 06:22 Dose: 1 mg Hydromorphone HCl (Dilaudid) 1 mg IVPUSH Q2H PRN PRN Reason: Pain (severe 7-10) Sodium Chloride (Normal Saline) 1,000 mls @ 999 mls/hr IV STAT ONE Stop: 09/16/17 05:43 Last Admin: 09/16/17 04:50 Dose: 999 mls/hr Sodium Chloride (Normal Saline) 1,000 mls @ 999 mls/hr IV STAT ONE Stop: 09/16/17 07:27 Last Admin: 09/16/17 06:29 Dose: 999 mls/hr Sodium Chloride (Normal Saline) 1,000 mls @ 999 mls/hr IV .Bolus ONE Stop: 09/16/17 07:27 Last Admin: 09/16/17 08:30 Dose: 999 mls/hr Lactated Ringer's (Ringers, Lactated) 1,000 mls @ 200 mls/hr IV ASDIRECTED [facility] Last Admin: 09/16/17 17:10 Dose: 200 mls/hr Sodium Chloride (Normal Saline) 1,000 mls @ 175 mls/hr IV ASDIRECTED [facility] Lactated Ringer's (Ringers, Lactated) 1,000 mls @ 150 mls/hr IV ASDIRECTED [facility] Last Admin: 09/17/17 05:21 Dose: 150 mls/hr Iopamidol (Isovue-370 (76%)) 100 ml IVPUSH ONETIME STA Stop: 09/16/17 06:06 Last Admin: 09/16/17 06:06 Dose: 100 ml Lisinopril (Prinivil) 20 mg PO DAILY [facility] Last Admin: 09/16/17 10:43 Dose: Not Given Lisinopril (Prinivil) 20 mg PO BEDTIME [facility] Last Admin: 09/16/17 21:01 Dose: 20 mg Metoclopramide HCl (Reglan) 10 mg IVPUSH Q6H PRN PRN Reason: Nausea Morphine Sulfate (Morphine) 4 mg IVPUSH Q2H PRN PRN Reason: Pain Last Admin: 09/16/17 23:16 Dose: 4 mg Ondansetron HCl (Zofran) 4 mg IVPUSH ONETIME ONE Stop: 09/16/17 04:44 Last Admin: 09/16/17 04:55 Dose: 4 mg Ondansetron HCl (Zofran) 4 mg IVPUSH Q4H PRN PRN Reason: Nausea Sodium Chloride (Saline Flush) 10 ml FLUSH ASDIRECTED PRN PRN Reason: Keep Vein Open Sodium Chloride (Saline Flush) 2.5 ml FLUSH ASDIRECTED PRN PRN Reason: Keep Vein Open Trazodone HCl (Trazodone) 50 mg PO BEDTIME [facility] Trazodone HCl (Trazodone) 150 mg PO BEDTIME [facility] Last Admin: 09/16/17 21:32 Dose: 150 mg
[2017-09-17] MEDS ORDERED: traZODone 50 MG Tab PO SCH (21:00)
== END 2017-09-17 11:00 | disposition home or self-care (01) | DRG 252 ==
LOC: MW.ED 04:29 → MW.MS 07:45
PROVIDERS: ADMIT Internal Medicine; ATTEND Internal Medicine
DX: K91.89 Other postprocedural complications and disorders of digestive system (principal); K50.90 Crohn's disease, unspecified, without complications; K57.30 Diverticulosis of large intestine without perforation or abscess without bleeding; R74.8 Abnormal levels of other serum enzymes; I10 Essential (primary) hypertension; M54.9 Dorsalgia, unspecified; G89.29 Other chronic pain; F41.8 Other specified anxiety disorders; F43.10 Post-traumatic stress disorder, unspecified; Z87.820 Personal history of traumatic brain injury; Z98.890 Other specified postprocedural states; Z79.899 Other long term (current) drug therapy; Z87.891 Personal history of nicotine dependence
CPT/HCPCS: 36415; 74177; 74177-26; 80048; 80053; 81001; 82150; 83605; 83630; 83690; 85025; 85652; 86140; 87046; 87338; 87899; 96361; 96374; 96375; 96376; 99285-25; A9270-GY; J1170; J1650; J2270; J2405; J7040; J7120; Q9967